=== PATIENT | male | born 1950 | race Asian ===

== ENCOUNTER 2018-04-25 08:00 | Day surgery (SDC) | payer OTHER ==
[2018-04-25] MEDS ORDERED: MIDAZOLAM 1 MG/ML 2 ML INJ ×2 (11:51)
[2018-04-25] MEDS ORDERED: FENTAnyl 50 MCG/ML VIAL (11:51)
== END 2018-04-25 13:48 | disposition home or self-care (01) ==
LOC: GIL 08:00
DX: Z12.11 Encounter for screening for malignant neoplasm of colon (principal); D12.0 Benign neoplasm of cecum; D12.3 Benign neoplasm of transverse colon; K64.4 Residual hemorrhoidal skin tags; K64.8 Other hemorrhoids; E78.00 Pure hypercholesterolemia, unspecified
CPT/HCPCS: 45380; 88305